=== PATIENT | male | born 2000 ===

== ENCOUNTER 2024-12-10 15:00 | Emergency (ER) | payer SELFPAY ==
[2024-12-10 15:26] VITALS: BP 123/71; PULSE 70; RESP 16; TEMP 37.1; O2SAT 99; BMI 26.4
--- NOTE | 2024-12-10 15:36 | PD.EDRME ---
Rapid Medical Screening Exam RME Arrival date/time: 12/10/24 15:00 This is a case of 24-year-old male with history of seizure came in in the emergency room initially with sport clearance patient had seizure September 2024 patient is not taking any medication for seizure currently complaining of mild headache and some dizziness Chief Complaint: General Adult/Misc Complain Time Seen by Provider: 12/10/24 15:09 Vital signs: Vital Signs Temperature 98.7 F 12/10/24 15:26 Pulse Rate 70 12/10/24 15:26 Respiratory Rate 16 12/10/24 15:26 Blood Pressure 123/71 12/10/24 15:26 Pulse Oximetry (%) 99 12/10/24 15:26
--- NOTE | 2024-12-10 15:53 | PD.EDADULT ---
ED General RME/HPI General Chief complaint: General Adult/Misc Complain Stated complaint: RECENT SEIZURE, NEEDS RELEASE FOR SPORTS Time Seen by Provider: 12/10/24 15:09 Arrival date/time: 12/10/24 15:00 Limitations: no limitations RME / HPI RME / HPI narrative: 12/10/24 15:00 This is a case of 24-year-old male with history of seizure came in in the emergency room initially with sport clearance patient had seizure September 2024 patient is not taking any medication for seizure currently complaining of mild headache and some dizziness Patient is a 24-year-old male medical history notable for seizure disorder, not currently on any antiepileptic medications because he has difficulty swallowing pills at the emergency department for clearance to return back to sports. 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 He is coming in today for clearance. Patient states he has not had any seizures since September. He does not get seizures frequently, occur intermittently. He is not currently in the care of a primary care doctor nor a neurologist because he recently moved here for college from [place]. Denies fevers chills nausea vomiting headache neck pain chest pain abdominal pain dysuria hematuria melena bloody stools. Patient does have any allergies to medications. Prior to the seizure patient denies having chest pain or feeling lightheaded. States that after he had his seizure cancer, well to speak again, concerning that he had a postictal state versus syncope. ED Exam General Limitations: Present no limitations General appearance: Present alert and in no apparent distress Head Head exam: Present atraumatic, normocephalic and normal inspection Eye Eye exam: Present normal appearance, PERRL and EOMI ENT ENT exam: Present normal exam and normal oropharynx Neck Neck exam: Present normal inspection, full ROM and tenderness Chest Chest inspection: Present normal inspection Respiratory Respiratory exam: Absent respiratory distress Cardiovascular Cardiovascular exam: Present regular rate Abdominal Exam Abdominal exam: Absent distention Extremities Exam Extremities exam: Present normal inspection and full ROM Neurological Exam Neurological exam: Present alert and other (Review extremities, no focal neurodeficits) Psychiatric Psychiatric exam: Present normal affect and normal mood Skin Skin exam: Present warm, dry and intact Course Quality Measures none Orders Category Date Time Status CT head/brain wo con Stat Exams 12/10/24 15:35 Stop Req Vital Signs Vital signs: Vital Signs Temperature 98.7 F 12/10/24 15:26 Pulse Rate 70 12/10/24 15:26 Respiratory Rate 16 12/10/24 15:26 Blood Pressure 123/71 12/10/24 15:26 Pulse Oximetry (%) 99 12/10/24 15:26 Discharge Plan Plan Patient Disposition: HOME (Self Care) Prescriptions/Referrals Referrals: [facility] [Outside] - In 1 week Problem List Clinical Impression: General medical exam Patient/Caregiver Discharge Instructions Additional Instructions: Please establish care with a primary care doctor this week. I provided you with the contact information for a clinic that you can follow up with this week. They will be able to provide the appropriate evaluation to be able to medically when it is safe for you to return to sports Marlen Wilson [facility] [id number] ? Print Language: Azerbaijani Stand Alone Forms: Dalila Award Info., Patient Portal Info Letter MDM Narrative MDM hospital course (for use when minimal MDM required): Patient is a 24-year-old male left in the Emergency Department requesting medical clearance so that he can return to sports. Vital signs and exam as listed. Patient without any symptoms,, no head trauma, does not use any blood thinners, has not had a seizure since September, feels fine. Patient came in to get clearance however I explained to the patient at length that it is important that he establish care with a primary care doctor, and be evaluated by neurologist before he can go back to sports. Vital signs and exam reassuring. Given the patient is asymptomatic at this time, labs CT and imaging are not indicated. Patient has a known history of seizure disorder. Advised patient that if he has a history of epilepsy not what ever seizure medication his providers put him on is important that he takes them to prevent breakthrough seizures. Patient provided with list of resources that where he can establish care with. He is not cleared to return back to physical activity nor driving. Clinical Information Provided by: none Medical Records reviewed None Meds/Rx considered, not ordered None Labs/Rad/Tests considered, not ordered None Chronic Illness/Social Conditions which may negatively complicate care or outcome(s)-explain: None or not applicable Labs Labs: none Imaging Imaging interpretation: none Medication Administration(s) none Diagnosis Differential Diagnosis ED Complaint MDM: History of epilepsy
--- NOTE | 2024-12-10 16:05 | PC.NURSE ---
Pt left without dc paperwork. Pt is no longer in the room.
--- NOTE | 2024-12-10 20:55 | PC.NURSE ---
PT CALLED BACK FROM [facility] NO ANSWER
--- NOTE | 2024-12-10 21:05 | PC.NURSE ---
PT CALLED FROM [facility] NO ANSWER
== END 2024-12-10 15:59 | disposition home or self-care (01) ==
LOC: SERX 16:25
PROVIDERS: Emergency Provider Emergency Medicine
DX: G40.909 Epilepsy, unspecified, not intractable, without status epilepticus (principal)
CPT/HCPCS: 80053; 81001; 85025; 99281